=== PATIENT | female | born 1995 | race American Indian/Alaskan Native ===

== ENCOUNTER 2021-06-15 11:03 | Emergency (ER) | payer OTHER, MEDICAID ==
--- NOTE | 2021-06-15 11:27 | Emergency Department Report ---
ED General Adult HPI - General Chief complaint: Psych Stated complaint: Psych PUI?: No Time Seen by Provider: 06/15/21 11:23 Source: patient, family, RN notes reviewed Mode of arrival: Ambulatory Limitations: Other (Acute psychosis) - History of Present Illness Initial comments: The patient was evaluated in the emergency department for symptoms described in the history of present illness. He/she was evaluated in the context of the global COVID-19 pandemic, which necessitated consideration that the patient might be at risk for infection with the virus that causes COVID-19. Institutional protocols and algorithms that pertain to the evaluation of patients at risk for COVID-19 are in a state of rapid change based on informa tion released by regulatory bodies including the CDC and federal and state organizations. These policies and algorithms were followed during the patient's care in the emergency department. Please note that these policies, procedures and recommendations changed on a rapid basis. During the history and physical examination, I am chaperoned by nurse Britany Callejas History obtained from patient, although limited because the patient is psychotic. Majority of history obtained from patient's father: dad: viviana Gayle [phone] The patient is a 25-year-old female who was brought to the hospital for erratic and psychotic behavior. As per her father, he is not sure if the patient has a history of psychiatric disease she does have a history of marijuana consumption, and the father reports that the patient began behaving erratically yesterday. He reports the patient does not live with him, but to the best of his knowledge, no fever, vomiting, diarrhea, and he also reports that he does not believe this patient is COVID-19 vaccinated The patient in the emergency room is awake, aggravated, aggressive, screaming, cursing, yelling, and dispensing insulting and inappropriate remarks to myself and staff members. This patient does not respond to verbal de-escalation techniques, show of force, and therefore required initiation of seclusion, and medication with haloperidol and Ativan. The patient's aunt endorsed to the nursing team that the patient has a known history of bipolar disorder, and is noncompliant with her medications -: unknown - Related Data Allergies Allergy/AdvReac Type Severity Reaction Status Date / Time Unable to Assess Allergy Unverified 06/15/21 11:27 ED Review of Systems ROS: Stated complaint: Psych Other details as noted in HPI Comment: Unobtainable due to pts medical conditions ED Physical Exam - General Limitations: Other (Acute psychosis) - Head Head exam: Present: atraumatic, normocephalic - Eye Eye exam: Present: normal appearance, EOMI. Absent: nystagmus - ENT ENT exam: Present: normal exam, normal orophraynx, mucous membranes moist - Neck Neck exam: Present: normal inspection, full ROM. Absent: tenderness, meningismus - Respiratory Respiratory exam: Present: normal lung sounds bilaterally. Absent: respiratory distress, wheezes, rales, rhonchi, stridor, decreased breath sounds - Cardiovascular Cardiovascular Exam: Present: normal rhythm, tachycardia, normal heart sounds. Absent: bradycardia, irregular rhythm, systolic murmur, diastolic murmur, rubs, gallop - GI/Abdominal GI/Abdominal exam: Present: soft. Absent: distended, tenderness, guarding, rebound, rigid, pulsatile mass - Extremities Exam Extremities exam: Present: normal inspection, full ROM, other (2+ pulses noted in the bilateral upper and lower extremities. There is no palpable cord. negative Homans sign. Muscular compartments are soft. The pelvis is stable.). Absent: pedal edema, calf tenderness - Back Exam Back exam: Present: normal inspection, full ROM. Absent: tenderness, CVA tenderness (R), CVA tenderness (L), paraspinal tenderness, vertebral tenderness - Neurological Exam Neurological exam: Present: other (The patient is awake. The patient moves 4 extremities. The patient ambulates with a steady gait. There is no obvious facial droop. EOMI.) - Psychiatric Psychiatric exam: Present: agitated, anxious - Skin Skin exam: Present: warm, dry, intact, normal color. Absent: rash ED Course Vital Signs 06/15/21 06/15/21 13:00 13:03 Temperature 98.8 F Pulse Rate 105 H Respiratory 18 Rate Blood Pressure 105/68 [Left] O2 Sat by Pulse 100 100 Oximetry - Reevaluation(s) Reevaluation #1: 06/15/21 13:28 Differential diagnosis, including but not limited to: Drug-induced psychosis, electrolyte derangement, thyroid derangement, urinary tract infection, intracranial lesion Assessment and plan: 25-year-old female with acute psychosis, who has a known history of bipolar disease/disorder, as per collateral information obtained from her aunt; I am suspicious for drug-induced psychosis and decompensated bipolar disorder. She is afebrile with reassuring vital signs without meningeal findings, and agitated, violence verbally, and combative, required medication with haloperidol and Ativan. 1013 ordered and signed by myself. Seclusion orders initiated. Patient personally evaluated by myself while in seclusion, protecting airway, and not in any significant distress. appropriate laboratory studies and urinalysis have been ordered. Psychiatric consultation is requested. Reassess after data points 06/15/21 13:53 06/15/21 14:55 Laboratory studies reviewed and are unremarkable at this time. Urinalysis is pending at this time COVID swab is pending at this time to facilitate psychiatric placement. Care be transferred to the oncoming provider to follow-up on urinalysis. However, at this point time, this patient does not appear to have an immediate medical contraindication to psychiatric admission, evaluation, consultation and placemen t ED Medical Decision Making - Lab Data Result diagrams: 06/15/21 13:46 06/15/21 13:46 Vital Signs 06/15/21 06/15/21 13:00 13:03 Temperature 98.8 F Pulse Rate 105 H Respiratory 18 Rate Blood Pressure 105/68 [Left] O2 Sat by Pulse 100 100 Oximetry Lab Results 06/15/21 06/15/21 06/15/21 Range/Units 13:46 13:46 13:46 WBC (4.5-11.0) K/mm3 RBC (3.65-5.03) M/mm3 Hgb (10.1-14.3) gm/dl Hct (30.3-42.9) % MCV (79-97) fl MCH (28-32) pg MCHC (30-34) % RDW (13.2-15.2) % Plt Count (140-440) K/mm3 Sodium 143 (137-145) mmol/L Potassium 3.5 L (3.6-5.0) mmol/L Chloride 104.3 (98-107) mmol/L Carbon Dioxide 20 L (22-30) mmol/L Anion Gap 22 mmol/L BUN 12 (7-17) mg/dL Creatinine 0.8 (0.6-1.2) mg/dL Estimated GFR > 60 ml/min BUN/Creatinine Ratio 15 % Glucose 79 (65-100) mg/dL Calcium 9.3 (8.4-10.2) mg/dL TSH 1.600 (0.270-4.200) mlU/mL HCG, Qual (Negative) Salicylates < 0.3 L (2.8-20.0) mg/dL Acetaminophen (10.0-30.0) ug/mL Plasma/Serum Alcohol (0-0.07) % 06/15/21 06/15/21 06/15/21 Range/Units 13:46 13:46 13:46 WBC (4.5-11.0) K/mm3 RBC (3.65-5.03) M/mm3 Hgb (10.1-14.3) gm/dl Hct (30.3-42.9) % MCV (79-97) fl MCH (28-32) pg MCHC (30-34) % RDW (13.2-15.2) % Plt Count (140-440) K/mm3 Sodium (137-145) mmol/L Potassium (3.6-5.0) mmol/L Chloride (98-107) mmol/L Carbon Dioxide (22-30) mmol/L Anion Gap mmol/L BUN (7-17) mg/dL Creatinine (0.6-1.2) mg/dL Estimated GFR ml/min BUN/Creatinine Ratio % Glucose (65-100) mg/dL Calcium (8.4-10.2) mg/dL TSH (0.270-4.200) mlU/mL HCG, Qual Negative (Negative) Salicylates (2.8-20.0) mg/dL Acetaminophen 5.0 L (10.0-30.0) ug/mL Plasma/Serum Alcohol < 0.01 (0-0.07) % 06/15/21 Range/Units 13:46 WBC 10.8 (4.5-11.0) K/mm3 RBC 4.57 (3.65-5.03) M/mm3 Hgb 12.8 (10.1-14.3) gm/dl Hct 39.0 (30.3-42.9) % MCV 85 (79-97) fl MCH 28 (28-32) pg MCHC 33 (30-34) % RDW 13.7 (13.2-15.2) % Plt Count 372 (140-440) K/mm3 Sodium (137-145) mmol/L Potassium (3.6-5.0) mmol/L Chloride (98-107) mmol/L Carbon Dioxide (22-30) mmol/L Anion Gap mmol/L BUN (7-17) mg/dL Creatinine (0.6-1.2) mg/dL Estimated GFR ml/min BUN/Creatinine Ratio % Glucose (65-100) mg/dL Calcium (8.4-10.2) mg/dL TSH (0.270-4.200) mlU/mL HCG, Qual (Negative) Salicylates (2.8-20.0) mg/dL Acetaminophen (10.0-30.0) ug/mL Plasma/Serum Alcohol (0-0.07) % Critical care attestation.: If time is entered above; I have spent that time in minutes in the direct care of this critically ill patient, excluding procedure time. ED Disposition Clinical Impression: Acute psychosis, Medical clearance for psychiatric admission Disposition: [address] [place] [address] Is pt being admited?: No Does the pt Need Aspirin: No Condition: Good Referrals: PRIMARY CARE, [Primary Care Provider] - 3-5 Days
[2021-06-15] MEDS: LORazepam 2 MG/ML VIAL IM PRN (11:38)
[2021-06-15] MEDS ORDERED: HALOPERIDOL LACTATE 5 MG/1 ML INJ IM PRN (12:00)
[2021-06-15 14:11] LABS: Hemoglobin 12.8 gm/dl (10.1-14.3); Mean Corpuscular HGB Conc 33 % (30-34); Mean Corpuscular Volume 85 fl (79-97); Platelet Count 372 K/mm3 (140-440); Red Blood Count 4.57 M/mm3 (3.65-5.03); Red Cell Distribution Width 13.7 % (13.2-15.2)
[2021-06-15 14:33] LABS: BUN/Creatinine Ratio 15; Blood Urea Nitrogen 12 mg/dL (7-17); Calcium 9.3 mg/dL (8.4-10.2); Hemolysis Index 1
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
[2021-06-16 11:22] VITALS: BP 129/76
--- NOTE | 2021-06-16 11:30 | Event Note ---
Date: 06/16/21 S: No events reported overnight O: Vital Signs 06/15/21 06/15/21 06/15/21 13:00 13:03 20:52 Temperature 98.8 F 98.6 F Pulse Rate 105 H 111 H Respiratory 18 18 Rate Blood Pressure 105/68 120/71 [Left] O2 Sat by Pulse 100 100 98 Oximetry 06/16/21 11:21 Temperature 98.7 F Pulse Rate 89 Respiratory 18 Rate Blood Pressure 129/76 [Left] O2 Sat by Pulse 99 Oximetry A: Bipolar disorder P: Awaiting inpatient psych placement
[2021-06-16] MEDS ORDERED: QUEtiapine 25 MG TAB PO SCH ×2 (12:00→22:00)
[2021-06-16 13:11] LABS: Amphetamine Screen,Urine Negative; Benzodiazepines Screen,Urine Negative; Cocaine Screen,Urine Negative; Methadone Screen,Urine Negative; Opiate Screen,Urine Negative
[2021-06-16 13:25] LABS: Cannabinoid Screen,Urine Positive
[2021-06-16 13:37] LABS: Bacteria,Urine 1+ /HPF (Negative); Bilirubin,Urine NEG (Negative); Blood,Urine NEG (Negative); Color,Urine Yellow (Yellow); Mucus,Urine 3+ /HPF
[2021-06-16] MEDS ORDERED: FLUCONAZOLE 200 MG TAB PO ONE (15:18)
[2021-06-16] MEDS ORDERED: SULFAMETHOXAZOLE/TRIMETHOPRIM 800/160MG DS TAB PO SCH (16:00)
[2021-06-16] MEDS: LORazepam 2 MG/ML VIAL IM PRN (16:59)
== END 2021-06-16 21:00 ==
LOC: ED 11:03
DX: F23 Brief psychotic disorder (principal); Z13.30 Encounter for screening examination for mental health and behavioral disorders, unspecified; Z79.899 Other long term (current) drug therapy; Z20.822 Contact with and (suspected) exposure to COVID-19
CPT/HCPCS: 36415; 80048; 80307; 81001; 84443; 84703; 85027; 96372; 99285; J1630; J2060; U0003; 80320; G0480